=== PATIENT | female | born 1965 | race Caucasian/White ===

== ENCOUNTER → 2017-04-06 | Outpatient (CLI) | payer OTHER ==
[~2017-04-06] MED LIST: FLAGYL PO; KEFLEX PO; LORTAB; LORTAB 7.5-5001 TAB PO; NO MEDICATIONS
--- NOTE | ~2017-04-06 | MY11 ---
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 Referring Physician: Amberly Butler M.D. Ordering Physician: Amberly Butler M.D. Primary Care Physician: Amberly Butler M.D. MEDICAL IMAGING REPORT This report is preliminary unless electronic signature is present. EXAM Digital screening mammogram 04/06/2017 [facility] HISTORY 51-year-old woman strong family history, mother age 40. Annual screen. COMPARISON: 03/20/2014, 08/21/2015. FINDINGS Digital imaging of each breast was completed utilizing screening protocol. Review includes FDA-approved CAD device. Breast parenchyma is predominantly fatty replaced. Mild fibroglandular dominance is again noted upper outer quadrant right breast. There is no breast mass. There are no interval occurring microcalcifications and no suspicious architectural deformity. IMPRESSION Negative mammogram. Annual screening recommended. Patients over the age of 40 are entered into a reminder system with target due date for the next mammogram. A result letter will also be sent to the patient. BIRADS: 1 - negative Dictated by... Shan Dutton M.D. THIS IS AN ELECTRONICALLY VERIFIED REPORT [facility] A Service [facility] RADIOLOGY TEXT RESULTS PATIENT: TEVIN MUELLER LOCATION: [facility] : 63 UNIT #: [id number] AGE: [address]: Amberly Butler MD SEX: F ORDER DR: Shan Dutton M.D. at 04/06/2017 1:41 PM SOY/feliciano TD: 04/06/2017 13:28 JOB #: [id number] MEDICAL IMAGING REPORT Page 1 of 1
--- NOTE | ~2017-04-06 | US37 ---
[facility] A Service of [facility] RADIOLOGY TEXT RESULTS PATIENT: TEVIN MUELLER LOCATION: [facility] : 63 UNIT #: [id number] AGE: [address]: Amberly Butler MD SEX: F ORDER DR: [id number] [address] [address] [id number] O MR#: [id number] Acc #: [id number] NAME: TEVIN MUELLER : 1965 SEX: F STUDY DATE/TIME: 04/06/2017 9:49 UNIT: [facility] ROOM: STUDY DESCRIPTION: US Carotid W/Doppler Bilateral Attending Physician: Amberly Butler M.D. Referring Physician: Amberly Butler M.D. Ordering Physician: Amberly Butler M.D. Primary Care Physician: Amberly Butler M.D. MEDICAL IMAGING REPORT This report is preliminary unless electronic signature is present. EXAM Bilateral carotid duplex HISTORY Chronic fatigue, shortness of air. FINDINGS Duplex imaging of the carotid arteries was performed. The right common carotid artery is patent. Internal and external carotid arteries are patent with no plaque. Velocity in the right common carotid is 66, internal is 92, and external is 62 cm/sec. Right ICA:CCA ratio is 1.4. On the left side, common, internal and external carotid arteries are widely patent with no plaque. Velocity in the left common carotid is 74, internal is 57, external is 77 cm/sec. Left ICA:CCA ratio is 1.1. Antegrade flow is seen in right and left vertebral arteries. IMPRESSION Normal carotid duplex exam with no plaque or stenosis in the right or left side. Antegrade flow is seen in the right and left vertebral arteries. Dictated by... Javon Lau M.D. THIS IS AN ELECTRONICALLY VERIFIED REPORT Javon Lau M.D. at 04/07/2017 2:59 PM SA/pcl [facility] A Service of [facility] RADIOLOGY TEXT RESULTS PATIENT: TEVIN MUELLER LOCATION: [facility] : 63 UNIT #: [id number] AGE: [address]: Amberly Butler MD SEX: F ORDER DR: TD: 04/06/2017 21:06 JOB #: [id number] MEDICAL IMAGING REPORT Page 1 of 1
== END | disposition home or self-care (01) ==
LOC: SMAM 09:22
DX: Z12.31 Encounter for screening mammogram for malignant neoplasm of breast (principal); R06.02 Shortness of breath; R53.82 Chronic fatigue, unspecified; Z72.0 Tobacco use; Z80.3 Family history of malignant neoplasm of breast
CPT/HCPCS: 93880; G0202

== ENCOUNTER → 2017-04-28 | Outpatient (CLI) | payer OTHER ==
--- NOTE | ~2017-04-28 | TM ---
[id number] NAME: TEVIN MUELLER MR#: [id number] Resting heart rate is 85, resting blood pressure is 131/87 mmHg. Baseline EKG shows normal sinus rhythm, no significant ST-T wave changes. PROCEDURE The patient was made to exercise on a standard Martin protocol. Total exercise time is 6 minutes, completing stage 2 of a standard Martin protocol. Test stopped because of shortness of breath. No complaints of chest pain, neck pain, arm pain, or jaw pain. Maximal heart rate obtained is 155, which is 92% of maximal predicted heart rate. Maximal blood pressure obtained is 150/[address]-T wave changes suggestive of ischemia. No arrhythmias noted. CONCLUSION 1. Poor exercise tolerance for age. 2. There is no clinical, hemodynamic or EKG evidence of ischemia at low to moderate workload (92% of maximal predicted heart rate, 7.0 METs). 3. Normal heart rate and blood pressure response. 4. Normal regular treadmill stress test with poor baseline exercise tolerance for age. Dictated by...
== END | disposition home or self-care (01) ==
LOC: CNUC 08:00 → CEKG 09:00 → CNUC 09:00
DX: R07.9 Chest pain, unspecified (principal); R53.82 Chronic fatigue, unspecified; R06.02 Shortness of breath
CPT/HCPCS: 93017